=== PATIENT | female | born 1930 | race Caucasian/White ===

== ENCOUNTER 2017-02-05 12:57 | Day surgery (SDC) | payer OTHER ==
[~2017-02-05 12:57] MED LIST: ALPHAGAN-P OPHTH 1 DOSE AFFEYE ONE; TETRACAINE 0.5% OPHTH 1 DOSE AFFEYE ONE
[2017-02-05] MEDS ORDERED: TETRACAINE 0.5% OPHTH 1 DOSE AFFEYE ONE ×2 (13:15→13:25)
[2017-02-05 14:01] VITALS: BP 119/79
== END 2017-02-05 13:55 | disposition home or self-care (01) ==
LOC: SURG1 12:57
PROVIDERS: ATTEND Ophthalmology
PROC: 08QD3ZZ Repair Left Iris, Percutaneous Approach (ICD-10-PCS; principal; 2017-02-05 06:00)
DX: H40.10X1 Unspecified open-angle glaucoma, mild stage (principal)
CPT/HCPCS: 65855

== ENCOUNTER 2018-03-12 19:53 | Observation (INO) ==
--- NOTE | 2018-03-12 20:32 | DR.GENAD ---
HPI Time Seen Time Seen by Provider: 03/12/18 20:32 PCP Primary Care Physician: KARLA Complaint/Symptoms Chief Complaint Doctors Comments: Patient presented to the ED with complaint of falling today when she became nauseated on her stomach. She lost her balance and fell onto her buttock. She has had decreased appetite and just will not eat. Chief Complaint:: PT STATES" I GOT TO FEELING SICK ON MY STOMACH I GOT TO THE SICK BUT COULDN'T THROW UP I MUST HAVE LOST MY BALANCE AND I FELL ON MY BEHIND. I TOOK SOME MOM LAST NIGHT AND IT WORKED ME WHEN I FELL" DAUGHTER STATES" SHE HAS NOT BEEN EATING MUCH IN THE LAST FEW DAYS" Source History Provided: Patient Mode of Arrival Mode of Arrival: Ambulatory Timing Onset of Chief Complaint: 03/12/18 PMH PMH Past Medical History: No Past Surgical History: Yes Surgical History: Abdominal Surgery and Family History History of Family Medical Conditions: Yes Family Medical History: Cancer Social History Does any household member use tobacco: No Alcohol Use: None Do you use any recreational Drugs:: No Lives With: Family Lives Where: Home infectious screening In the last 2 months have you had wt loss of >10#?: NO Have you had fever, night sweats or hemotysis?: No Have you traveled outside the country in the last 6 months?: No Isolation: Standard PE Vital Signs Vitals: Temperature 101.0 F Pulse Rate [Left] 76 Pulse Rate 102 Respiratory Rate 16 Blood Pressure [Left Arm] 126/58 Blood Pressure 143/65 O2 Sat by Pulse Oximetry 96 General Limitations: No Limitations General Appearance: Alert and In No Apparent Distress Head Head Exam: Normal Inspection, Atraumatic and Normocephalic Eyes Eye exam: Normal Appearance, PERRL and EOMI ENT ENT Exam: Normal Exam, Normal Oropharynx and Normal External Ear Exam External Ear Exam: Normal External Inspection TM/Canal Exam: Bilateral: Normal Nose Exam: Normal Nose Exam Mouth Exam: Normal Inspection Throat Exam: Normal Inspection Neck Neck Exam: Normal Inspection and Full ROM Chest Chest Inspection: Normal Inspection and Symmetric Chest Wall Rise Respiratory Respiratory Exam: Normal Lung Sounds Bilat Respiratory Exam: Bilateral: Clear to Auscultation Cardiovascular Cardiovascular Exam: Regular Rate, Normal Rhythm, Tachycardia and Systolic Murmur (III/IV) Abdominal Exam Abdominal Exam: Normal Inspection, Normal Bowel Sounds, Soft and Hypoactive Bowel Sounds; negative Rebound and Rigidity Abdominal Tenderness: negative RUQ, RLQ and LUQ Extremities Extremities Exam: Normal Inspection and Full ROM Back Back Exam: Normal Inspection and Full ROM Neurologic Neurological Exam: Alert, Oriented X3 and CN II-XII Intact Psychiatric Psychiatric Exam: Normal Affect and Normal Mood Skin Skin Exam: Warm, Dry and Intact COURSE Consultation Called: 23:15 Consultation Comments: Dr. Ramos agreed to admit for further treatment and evaluation ROR Labs Reviewed Laboratory Results Reviewed?: Yes Result Diagrams: 03/12/18 21:05 03/12/18 21:05 Laboratory: WBC 9.3 X10^3/uL (3.6-10.0) 03/12/18 21:05 RBC 3.55 X10^6/uL (3.5-5.4) 03/12/18 21:05 Hgb 10.8 g/dL (12.0-16.0) L 03/12/18 21:05 Hct 31.3 % (36.0-47.0) L 03/12/18 21:05 MCV 88.2 fL (80.0-100.0) 03/12/18 21:05 MCH 30.3 pg (27.0-34.0) 03/12/18 21:05 MCHC 34.4 g/dL (33.0-35.0) 03/12/18 21: RDW 14.6 % (11.6-16.5) 03/12/18 21:05 Plt Count 203 X10^3/uL (150.0-450.0) 03/12/18 21:05 MPV 7.9 fL (7.4-11.0) 03/12/18 21:05 Neut % (Auto) 89.1 % (42.0-75.0) H 03/12/18 21:05 Lymph % (Auto) 3.1 % (21.0-51.0) L 03/12/18 21:05 [place] % (Auto) 7.4 % (0.0-13.0) 03/12/18 21:05 Eos % (Auto) 0.1 % (0.9-2.9) L 03/12/18 21:05 Baso % (Auto) 0.3 % (0.2-1.0) 03/12/18 21:05 Neut # (Auto) 8.3 x10^3/uL (2.2-4.8) H 03/12/18 21:05 Lymph # (Auto) 0.3 X10^3/uL (1.3-2.9) L 03/12/18 21:05 [place] # (Auto) 0.7 x10^3/uL (0.3-0.8) 03/12/18 21:05 Eos # (Auto) 0.0 x10^3/uL (0.0-0.2) 03/12/18 21:05 Baso # (Auto) 0.0 X10^3/uL (0.0-0.1) 03/12/18 21:05 Absolute Nucleated RBC 0.0 /100WBC 03/12/18 21:05 Sodium 133 mmol/L (136-145) L 03/12/18 21:05 Corrected Sodium 134 mmol/L (136-145) L 03/12/18 21:05 Potassium 3.7 mmol/L (3.5-5.1) 03/12/18 21:05 Chloride 99 mmol/L (98-107) 03/12/18 21:05 Carbon Dioxide 24.2 mmol/L (21-32) 03/12/18 21:05 BUN 23 mg/dL (7-18) H 03/12/18 21:05 Creatinine 1.22 mg/dL (0.55-1.02) H 03/12/18 21:05 Est GFR (MDRD) Af Amer 53 (>60) L 03/12/18 21:05 Est GFR (MDRD) Non-Af 44 (>60) L 03/12/18 21:05 Glucose 139 mg/dL (65-99) H 03/12/18 21:05 Calcium 7.9 mg/dL (8.5-10.1) L 03/12/18 21:05 Corrected Calcium 8.8 mg/dL (8.5-10.1) 03/12/18 21:05 Total Bilirubin 0.50 mg/dL (0.2-1.0) 03/12/18 21:05 AST 21 Units/L (15-37) 03/12/18 21:05 ALT 17 Units/L (12-78) 03/12/18 21:05 Alkaline Phosphatase 83 Units/L (46-116) 03/12/18 21:05 Total Protein 6.9 g/dL (6.4-8.2) 03/12/18 21:05 Albumin 2.9 g/dL (3.4-5.0) L 03/12/18 21:05 Globulin 4.0 g/dL (2.5-4.5) 03/12/18 21:05 Albumin/Globulin Ratio 0.7 Ratio (1.1-2.1) L 03/12/18 21:05 Amylase 41 Units/L (25-115) 03/12/18 21:05 Lipase 144 Units/L (73-393) 03/12/18 21:05 TSH 3rd Generation 1.263 uIU/mL (0.358-3.74) 03/12/18 21:05 Specimen Type Clean catch urine 03/13/18 00:34 Urine Color Yellow (YELLOW) 03/13/18 00:34 Urine Appearance Cloudy (CLEAR) 03/13/18 00:34 Urine pH 5.0 (5.0 - 8.0) 03/13/18 00:34 Ur Specific [place] 1.005 (1.000-1.030) 03/13/18 00:34 Urine Protein 2+ (NEGATIVE) 03/13/18 00:34 Urine Glucose (UA) Negative (NEGATIVE) 03/13/18 00:34 Urine Ketones Negative (NEGATIVE) 03/13/18 00:34 Urine Occult Blood 5+ (NEGATIVE) 03/13/18 00:34 Urine Nitrite Negative (NEGATIVE) 03/13/18 00:34 Urine Bilirubin Negative (NEGATIVE) 03/13/18 00:34 Urine Urobilinogen Normal (NORMAL) 03/13/18 00:34 Ur Leukocyte Esterase 3+ (NEGATIVE) 03/13/18 00:34 Urine RBC Tntc /HPF (NONE SEEN) 03/13/18 00:34 Urine WBC 30-50 /HPF (NONE SEEN) 03/13/18 00:34 Ur Squamous Epith Cells Rare /HPF (NEGATIVE) 03/13/18 00:34 Urine Bacteria 4+ /HPF (NEGATIVE) 03/13/18 00:34 Ur Culture Indicated? Yes/culture set up 03/13/18 00:34 Acetaminophen 0.0 ug/mL (10-30) L 03/12/18 21:05 Influenza Type A (PCR) Negative (NEGATIVE) 03/12/18 23:57 Influenza Type B (PCR) Negative (NEGATIVE) 03/12/18 23:57 Other Results Comments: Chest PA/Lat: There is no pneumothorax or effusion. There is no consolidation. Heart size in prominent. Impression: No acute chest process. COPD and borderline enlarged heart. CT Brain:There is no acute intracranial hemorrhage,mass or mass effect. No extra-axial fluid collection or abnormal area of hypo-attenuation to suggest infarction. Ventricles and sulci show ex vacuo enlargement. Review of bone windows shows no osseous lesion. P:aranasal sinuses and mastoid air cells are clear. Impression: No acute intracranial hemorrhage. Atrophy and microangiopathy. Diagnosis Discharge Problem: Chest pain Qualifiers: Chest pain type: unspecified Qualified Code(s): R07.9 - Chest pain, unspecified ADDITIONAL NOTES Additional Notes Additional Notes: Patient is being admitted to the service of Dr. Ramos
[2018-03-12] MEDS ORDERED: NS 1000 ML 1,000 ML IV SCH (21:00)
[2018-03-12 21:16] LABS: BASOPHILS % (AUTO) 0.3 % (0.2-1.0); EOSINOPHILS % (AUTO) 0.1 % (0.9-2.9); HEMATOCRIT 31.3 % (36.0-47.0); HEMOGLOBIN 10.8 g/dL (12.0-16.0); LYMPHOCYTES # (AUTO) 0.3 X10^3/uL (1.3-2.9); LYMPHOCYTES % (AUTO) 3.1 % (21.0-51.0); MEAN CORPUSCULAR HEMOGLOBIN 30.3 pg (27.0-34.0); MEAN CORPUSCULAR HGB CONC 34.4 g/dL (33.0-35.0); MEAN CORPUSCULAR VOLUME 88.2 fL (80.0-100.0); MEAN PLATELET VOLUME 7.9 fL (7.4-11.0); MONOCYTES # (AUTO) 0.7 x10^3/uL (0.3-0.8); MONOCYTES % (AUTO) 7.4 % (0.0-13.0); NEUTROPHILS # (AUTO) 8.3 x10^3/uL (2.2-4.8); NEUTROPHILS % (AUTO) 89.1 % (42.0-75.0); PLATELET COUNT 203 X10^3/uL (150.0-450.0); RED BLOOD COUNT 3.55 X10^6/uL (3.5-5.4); RED CELL DISTRIBUTION WIDTH 14.6 % (11.6-16.5); WHITE BLOOD COUNT 9.3 X10^3/uL (3.6-10.0)
[2018-03-12 21:34] LABS: ALBUMIN 2.9 g/dL (3.4-5.0); CALCIUM 7.9 mg/dL (8.5-10.1); CARBON DIOXIDE 24.2 mmol/L (21-32); COR CA(FOR HYPOALB) 8.8 mg/dL (8.5-10.1); CREATININE 1.22 mg/dL (0.55-1.02); TOTAL PROTEIN 6.9 g/dL (6.4-8.2); TSH (3RD GENERATION) 1.263 uIU/mL (0.358-3.74)
--- NOTE | 2018-03-12 21:52 | CT ---
CT head without contrast Indication: Nausea. Vertigo. Technique: Axial images from the skullbase to the vertex without contrast. Coronal and sagittal reformats provided. Findings: There is no acute intracranial hemorrhage, mass or mass effect. No extra-axial fluid collection or abnormal area of hypoattenuation suggest infarction seen. Ventricles and sulci show ex vacuo enlargement. Review of bone windows shows no osseous lesion. Paranasal sinuses and mastoid air cells are clear. Impression: 1. No acute intracranial hemorrhage 2. Atrophy and microangiopathy. Reported By:
--- NOTE | 2018-03-12 22:12 | RAD ---
Chest PA and lateral Indication: Nausea Comparison: 10/05/2017 Findings: There is no pneumothorax or effusion. There is no consolidation. Heart size is prominent. Impression: No acute chest process. COPD and borderline enlarged heart Reported By:
[2018-03-12] MEDS ORDERED: TYLENOL ELIXIR 325 MG UDC ONE (23:40)
[2018-03-12] MEDS: TYLENOL ELIXIR 325 MG UDC PO PRN (23:44)
[2018-03-13 00:58] LABS: BILIRUBIN,URINE NEGATIVE (NEGATIVE); BLOOD/HEMOGLOBIN,URINE 5+ (NEGATIVE); GLUCOSE, URINE NEGATIVE (NEGATIVE); KETONES,URINE NEGATIVE (NEGATIVE); LEUKOCYTE ESTERASE ,URINE 3+ (NEGATIVE); NITRITES,URINE NEGATIVE (NEGATIVE); PROTEIN,URINE 2+ (NEGATIVE); UROBILINOGEN,URINE NORMAL (NORMAL)
[2018-03-13 01:10] LABS: APPEARANCE,URINE CLOUDY (CLEAR); BACTERIA,URINE 4+ /HPF (NEGATIVE); COLOR,URINE YELLOW (YELLOW); RBC,URINE TNTC /HPF (NONE SEEN); SQUAMOUS EPITHELIAL CELL,UR RARE /HPF (NEGATIVE)
[2018-03-13] MEDS: NS 1000 ML 1,000 ML IV SCH ×2 (02:38→13:41)
[2018-03-13 06:07] LABS: BASOPHILS % (AUTO) 0.3 % (0.2-1.0); EOSINOPHILS % (AUTO) 0.3 % (0.9-2.9); HEMATOCRIT 29.2 % (36.0-47.0); HEMOGLOBIN 10.1 g/dL (12.0-16.0); LYMPHOCYTES # (AUTO) 0.6 X10^3/uL (1.3-2.9); LYMPHOCYTES % (AUTO) 8.4 % (21.0-51.0); MEAN CORPUSCULAR HEMOGLOBIN 30.6 pg (27.0-34.0); MEAN CORPUSCULAR HGB CONC 34.6 g/dL (33.0-35.0); MEAN CORPUSCULAR VOLUME 88.5 fL (80.0-100.0); MEAN PLATELET VOLUME 8.2 fL (7.4-11.0); MONOCYTES # (AUTO) 0.7 x10^3/uL (0.3-0.8); MONOCYTES % (AUTO) 9.5 % (0.0-13.0); NEUTROPHILS % (AUTO) 81.5 % (42.0-75.0); PLATELET COUNT 207 X10^3/uL (150.0-450.0); RED BLOOD COUNT 3.31 X10^6/uL (3.5-5.4); RED CELL DISTRIBUTION WIDTH 14.3 % (11.6-16.5); WHITE BLOOD COUNT 7.3 X10^3/uL (3.6-10.0)
[2018-03-13 06:13] LABS: ALANINE AMINOTRANSFERASE 15 Units/L (12-78); ALBUMIN 2.6 g/dL (3.4-5.0); ALKALINE PHOSPHATASE 71 Units/L (46-116); ASPARTATE AMINO TRANSFERASE 17 Units/L (15-37); BLOOD UREA NITROGEN 17 mg/dL (7-18); CALCIUM 7.8 mg/dL (8.5-10.1); CARBON DIOXIDE 23.7 mmol/L (21-32); CHLORIDE 106 mmol/L (98-107); COR CA(FOR HYPOALB) 8.9 mg/dL (8.5-10.1); CREATININE 0.98 mg/dL (0.55-1.02); SODIUM 139 mmol/L (136-145); TOTAL PROTEIN 6.3 g/dL (6.4-8.2); eGFR NON BLACK RACES 57 (>60)
[2018-03-13] MEDS: ASPIRIN PO SCH (09:41)
[2018-03-13] MEDS: TYLENOL ELIXIR 325 MG UDC PO PRN (09:41)
[2018-03-13] MEDS: ZOSYN VIAL 3.375 GRAMS 3.375 G in NS 100 ML IV + SPIKE MINIBAG* 100 ML IV SCH ×3 (09:42→21:33)
[2018-03-13] MEDS ORDERED: MOTRIN TAB 600 MG PO PRN (10:57)
[2018-03-13] MEDS ORDERED: ROBITUSSIN DM ONE (17:51)
[2018-03-13] MEDS: ROBITUSSIN DM PO PRN ×2 (18:25→22:30)
[2018-03-13 21:14] LABS: CKMB % 2.6 % (<4); CREATINE KINASE 38 Units/L (26-192); CREATINE KINASE MB < 1.0 ng/mL (0-4.0); TROPONIN I < 0.02 ng/mL (0-1.5)
[2018-03-14] MEDS: NS 1000 ML 1,000 ML IV SCH (02:01)
[2018-03-14 05:16] LABS: BASOPHILS % (AUTO) 0.6 % (0.2-1.0); EOSINOPHILS # (AUTO) 0.1 x10^3/uL (0.0-0.2); HEMATOCRIT 28.3 % (36.0-47.0); HEMOGLOBIN 9.8 g/dL (12.0-16.0); LYMPHOCYTES # (AUTO) 0.9 X10^3/uL (1.3-2.9); MEAN CORPUSCULAR HEMOGLOBIN 30.5 pg (27.0-34.0); MEAN CORPUSCULAR HGB CONC 34.6 g/dL (33.0-35.0); MEAN CORPUSCULAR VOLUME 88.2 fL (80.0-100.0); MEAN PLATELET VOLUME 8.2 fL (7.4-11.0); MONOCYTES # (AUTO) 0.5 x10^3/uL (0.3-0.8); MONOCYTES % (AUTO) 8.7 % (0.0-13.0); NEUTROPHILS # (AUTO) 4.6 x10^3/uL (2.2-4.8); NEUTROPHILS % (AUTO) 75.7 % (42.0-75.0); PLATELET COUNT 212 X10^3/uL (150.0-450.0); RED BLOOD COUNT 3.21 X10^6/uL (3.5-5.4); RED CELL DISTRIBUTION WIDTH 14.9 % (11.6-16.5); WHITE BLOOD COUNT 6.1 X10^3/uL (3.6-10.0)
[2018-03-14 05:27] LABS: ALANINE AMINOTRANSFERASE 16 Units/L (12-78); ALBUMIN 2.4 g/dL (3.4-5.0); ALKALINE PHOSPHATASE 72 Units/L (46-116); ASPARTATE AMINO TRANSFERASE 21 Units/L (15-37); BLOOD UREA NITROGEN 9 mg/dL (7-18); CALCIUM 7.3 mg/dL (8.5-10.1); CARBON DIOXIDE 24.3 mmol/L (21-32); CHLORIDE 107 mmol/L (98-107); COR CA(FOR HYPOALB) 8.6 mg/dL (8.5-10.1); CREATININE 0.98 mg/dL (0.55-1.02); SODIUM 140 mmol/L (136-145); eGFR NON BLACK RACES 57 (>60)
[2018-03-14] MEDS: ZOSYN VIAL 3.375 GRAMS 3.375 G in NS 100 ML IV + SPIKE MINIBAG* 100 ML IV SCH (05:57)
[2018-03-14] MEDS: ASPIRIN PO SCH (09:25)
[2018-03-14 10:25] VITALS: BMI 19.5
[2018-03-14 12:25] VITALS: BP 145/65
== END 2018-03-14 13:15 | disposition home or self-care (01) ==
LOC: ER 19:54 → ICU 19:54 → MED/SURG 03-13 15:11
PROVIDERS: ADMIT Obstetrics & Gynecology Obstetrics; ATTEND Obstetrics & Gynecology Obstetrics
DX: R94.31 Abnormal electrocardiogram [ECG] [EKG]; R53.1 Weakness; R26.89 Other abnormalities of gait and mobility; E87.1 Hypo-osmolality and hyponatremia; Z79.01 Long term (current) use of anticoagulants; N39.0 Urinary tract infection, site not specified; R29.6 Repeated falls; W18.39XA Other fall on same level, initial encounter; R94.4 Abnormal results of kidney function studies; B96.29 Other Escherichia coli [E. coli] as the cause of diseases classified elsewhere; E86.0 Dehydration
CPT/HCPCS: 36415; 70450; 71020; 71046; 80053; 80307; 81001; 82150; 82550; 82553; 83690; 84443; 84484; 85025; 85378; 87086; 87088; 87186; 87502; 93005; 93010; 94760; 96365; 96367; 96374; 97161; 99284; A4216; A4222; G0378; G6039; J2543; J7030; J7050